=== PATIENT | female | born 1930 | race Caucasian/White ===

== ENCOUNTER 2016-11-25 08:00 | Outpatient (CLI) | payer MEDICARE, BC | END 2016-11-25 23:59 | disposition home or self-care (01) | LOC: D.RAD 08:00 | DX: K59.00 Constipation, unspecified (principal); R10.9 Unspecified abdominal pain ==

== ENCOUNTER → 2016-12-05 10:08 | Outpatient (CLI) | payer MEDICARE, BC | END | disposition home or self-care (01) | LOC: D.CT 10:08 | DX: K59.00 Constipation, unspecified (principal); R10.32 Left lower quadrant pain; K92.1 Melena ==